=== PATIENT | female | born 1990 | race Caucasian/White ===

== ENCOUNTER 2021-07-24 01:07 | Inpatient (IN) | payer BC ==
[2021-07-24 01:20] VITALS: BMI 34.4
[2021-07-24] MEDS ORDERED: NS w/ Oxytocin 30 units 500 ML IV SCH (01:20)
[2021-07-24] MEDS ORDERED: hydrALAZINE 20 MG/ML VIAL SLOW IVP PRN ×2 (01:20→14:06)
[2021-07-24] MEDS ORDERED: Zolpidem Tartrate 5 MG TAB PO PRN (01:20)
[2021-07-24] MEDS ORDERED: Ondansetron PF 4 MG/2 ML Vial IVP PRN ×2 (01:20→10:37)
[2021-07-24] MEDS ORDERED: Lidocaine 1% (PF) 30 ML VIAL SC PRN (01:20)
[2021-07-24] MEDS ORDERED: Calcium Gluc 4.6 MEQ/10 ML (100 MG/ML) SLOW IVP PRN (01:20)
[2021-07-24] MEDS ORDERED: Misoprostol 200 MCG TAB PR PRN (01:20)
[2021-07-24] MEDS ORDERED: Carboprost 250 MCG/ML AMP IM PRN (01:20)
[2021-07-24] MEDS ORDERED: Diphenoxylate HCl/Atropine Tablet PO PRN (01:20)
[2021-07-24] MEDS ORDERED: NS w/ Oxytocin 30 units 500 ML IVPB SCH (01:20)
[2021-07-24] MEDS ORDERED: Promethazine HCl 25 MG/ML VIAL IM PRN ×2 (01:20→10:37)
[2021-07-24] MEDS ORDERED: HYDROcodone/Acetaminophen 5/325 mg Tablet PO PRN ×2 (01:20)
[2021-07-24] MEDS ORDERED: Misoprostol 100 MCG TAB VAG SCH (02:00)
[2021-07-24 02:13] LABS: ALT (SGPT) 12 U/L (8-55); AST (SGOT) 19 U/L (5-34); Albumin 3.5 g/dL (3.5-5.0); Alkaline Phosphatase 105 U/L (40-110); Anion Gap 15 mmol/L (10-20); BUN (Urea Nitrogen) 10 mg/dL (7.0-18.7); Bilirubin, Total 0.2 mg/dL (0.2-1.2); Calc. Creatinine Clearance 191 mL/min (70-130); Carbon Dioxide 20 mmol/L (22-29); Chloride 108 mmol/L (98-107); Globulin 2.5 g/dL (2.4-3.5); Glucose 82 mg/dL (70-105); Hemoglobin 11.3 g/dL (12.0-15.5); Mean Corpuscular HGB CONC 32.4 g/dL (32.0-36.0); Mean Corpuscular Hemoglobin 28.7 pg (27.0-33.0); Mean Corpuscular Volume 88.6 fl (81.6-98.3); Mean Platelet Volume 9.9 fl (7.4-10.4); Platelet Count 305 10x3/uL (150-450); Potassium 3.8 mmol/L (3.5-5.1); RBC Distribution Width 13.9 % (11.5-14.5); Red Blood Cell (RBC) Count 3.94 10x6/uL (3.90-5.03); Sodium 139 mmol/L (136-145); White Blood Cell (WBC) Count 10.5 10x3/uL (3.5-10.5)
[2021-07-24 02:30] LABS: Hep B Surf Ag Non-Reactive S/CO (NonReactive); Syphilis Antibody Nonreactive (Nonreactive); Syphilis Antibody Index 0.04 S/CO (<1.00 Non-Reactive)
[2021-07-24 02:50] LABS: SARS-CoV-2 NAA Rapid Test Not Detected (NotDetected)
[2021-07-24 03:12] LABS: HBSAg Index 0.19 S/CO (0-0.99)
[2021-07-24] MEDS ORDERED: Bupivacaine 0.25% HCL 30 ML VIAL ONE (06:00)
[2021-07-24] MEDS ORDERED: Fentanyl 2 mcg/Bup 0.1% Cadd 100 ML ONE (09:41)
[2021-07-24] MEDS ORDERED: Acetaminophen 325 MG TAB PO PRN (10:37)
[2021-07-24] MEDS ORDERED: ePHEDrine Sulfate 50 MG/10 ML VIAL SLOW IVP PRN (10:37)
[2021-07-24] MEDS ORDERED: Lactated Ringer's 500 ML IV PRN (10:37)
[2021-07-24] MEDS ORDERED: Hydrocerin (Eucerin) Cream 120 gm Jar TOP PRN (10:37)
[2021-07-24] MEDS ORDERED: Naloxone HCl 0.4 mg/ml Vial IVP PRN ×2 (10:37)
[2021-07-24] MEDS ORDERED: diphenhydrAMINE 50 MG/ML VIAL IVP PRN (10:37)
[2021-07-24] MEDS ORDERED: Fentanyl 2 mcg/Bupivacaine 0.1% Cassette 100 ML EPIDURAL SCH (10:45)
[2021-07-24] MEDS ORDERED: Communication Order-Pharmacy FS SCH (10:45)
[2021-07-24 10:51] LABS: Creatinine, Urine 66.42 mg/dL (47-110); Protein, Urine Random Quant Less than 10 mg/dL (1-14)
[2021-07-24] MEDS ORDERED: PHENYLEPHRINE-NS 100 MCG/ML 10 ML SYRINGE ONE (10:56)
[2021-07-24] MEDS ORDERED: Phenylephrine 10 MG/ML VIAL IV PRN (11:04)
[2021-07-24] MEDS ORDERED: Benzocaine-Menthol 82.5 ML CAN TOP PRN (14:06)
[2021-07-24] MEDS ORDERED: Milk Of Magnesia 30 ML UDCUP PO PRN (14:06)
[2021-07-24] MEDS ORDERED: Lanolin Ointment 7 GM TUBE TOP PRN (14:06)
[2021-07-24] MEDS ORDERED: Bisacodyl 10 MG SUPP PR PRN (14:06)
[2021-07-24] MEDS ORDERED: Preparation H Ointment 28 GM TUBE PR PRN (14:06)
[2021-07-24] MEDS: Ferrous Sulfate 325 MG TAB PO SCH (16:53)
[2021-07-24] MEDS ORDERED: traMADol HCl 50 MG TAB PO PRN (17:41)
[2021-07-24] MEDS: Docusate Calcium (SURFAK) 240 MG CAP PO SCH (21:43)
[2021-07-24] MEDS: Ibuprofen 800 MG TAB PO SCH (21:43)
[2021-07-25] MEDS: Ibuprofen 800 MG TAB PO SCH ×2 (05:15→14:19)
[2021-07-25] MEDS: Ferrous Sulfate 325 MG TAB PO SCH ×2 (07:48→17:07)
[2021-07-25] MEDS: Docusate Calcium (SURFAK) 240 MG CAP PO SCH (08:42)
[2021-07-25] MEDS ORDERED: Prenatal Vitamin 1 TAB PO SCH (09:00)
[2021-07-25 11:25] VITALS: BP 136/78; TEMP 97.9
[2021-07-25] MEDS ORDERED: Boostrix 0.5 ML (Tdap) VIAL IM ONE (14:06)
== END 2021-07-25 17:45 | disposition home or self-care (01) | DRG 807 ==
LOC: CSHLD 01:07 → CSHPP 16:20
PROVIDERS: ADMIT Obstetrics & Gynecology; ATTEND Obstetrics & Gynecology
PROC: 3E033VJ Introduction of Other Hormone into Peripheral Vein, Percutaneous Approach (ICD-10-PCS; principal; 2021-07-24)
PROC: 10E0XZZ Delivery of Products of Conception, External Approach (ICD-10-PCS; 2021-07-24)
DX: O13.4 Gestational [pregnancy-induced] hypertension without significant proteinuria, complicating childbirth (principal); Z37.0 Single live birth; Z20.822 Contact with and (suspected) exposure to COVID-19; Z3A.37 37 weeks gestation of pregnancy
CPT/HCPCS: 36415; 51702; 80053; 81003; 82570; 84156; 85027; 86780; 86850; 86900; 86901; 87340; 99285; J2590; S0020; U0002